=== PATIENT | male | born 1965 | race Two or more races ===

== ENCOUNTER 2018-12-07 19:14 | Emergency (ER) | payer OTHER ==
[~2018-12-07] VITALS: Ht 162.6 cm; Wt 77.1 kg
[~2018-12-07 19:14] MED LIST: ASPI-630 PO; ERGO500027 PO; METF500T16 PO
[2018-12-07 19:35] VITALS: BP 172/106
--- NOTE | 2018-12-07 19:53 | PHYS DOC ---
Past Medical History Past Medical History: Diabetes-Type II, Hypertension Past Surgical History: No Surgical History Alcohol Use: Occasionally Drug Use: None Adult General Chief Complaint Chief Complaint: LACERATION/AVULSION HPI HPI 43-year-old male presents to ER via POV with complaints of accidental laceration to right middle finger. Patient states he was using a skill saw when the accident occurred which was at 8:30 this evening. Patient denies large amount of blood loss. Patient also has abrasion on tip of rt finger. Pt denies any pain on arrival. 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 Review of Systems Review of Systems Constitutional: Denies fatigue GI: Denies nausea, vomiting Musculoskeletal: Reports rt middle finger laceration involving nail Neurologic: Denies focal weakness or sensory changes. Denies dizziness All other systems were reviewed and found to be within normal limits, except as documented in this note. Current Medications Current Medications Current Medications Medications (Trade) Dose Ordered Sig/Mikey Start Time Stop Time Status Last Admin Dose Admin Cephalexin HCl (Keflex) 500 mg 1X ONCE 12/07/18 22:30 12/07/18 22:31 DC 12/07/18 23:22 500 MG Diphtheria/ Tetanus/Acell Pertussis (Boostrix) 0.5 ml ONCE ONCE 12/07/18 20:00 12/07/18 20:01 DC 12/07/18 20:37 0.5 ML Gelatin (Gelfoam Size 100) 1 each 1X ONCE 12/07/18 23:30 12/07/18 23:31 DC Lidocaine HCl (Xylocaine 1% Pf 30ml Vial) 30 ml 1X ONCE 12/07/18 20:00 12/07/18 20:01 DC 12/07/18 22:00 30 ML Neomycin/ Polymyxin/ Bacitracin (Triple Antibiotic Ointment) 1 pkt 1X ONCE 12/07/18 23:30 12/07/18 23:31 DC 12/07/18 23:24 1 PKT Allergies Allergies Allergies Coded Allergies Type Severity Reaction Last Updated Verified No Known Drug Allergies 08/15/14 No Physical Exam Physical Exam Constitutional: Well developed, well nourished, no acute distress, non-toxic appearance. [] HENT: Normocephalic, atraumatic, oropharynx moist, nose normal. [] Eyes: Pupils equal, conjunctiva normal, no discharge. [] Neck: Normal range of motion, supple Cardiovascular: Heart rate regular Lungs & Thorax: Resp. equal/nonlabored Skin: Warm, dry Extremities: No cyanosis, no clubbing, ROM intact. 2+ bilat. radial. Rt middle finger distal tip laceration extending from tip of finger thru middle of nailbed. Proximal nail still intact without laceration extending thru entire nail. Laceration w/light bleeding. Pt is able to perform ROM of rt middle finger joints- cap refill brisk. Other fingers rt hand without injury- full ROM. Neurologic: Alert and oriented X 3, normal motor function, normal sensory function, no focal deficits noted. [] Psychologic: Affect normal, judgement normal, mood normal. [] Current Patient Data Vital Signs EKG EKG [] Radiology/Procedures Radiology/Procedures PROCEDURE: FINGER(S) RIGHT FINGER(S) RIGHT History: LACERATION TO 3RD DIGIT OF RIGHT HAND Comparison: None. Findings: 3 views of the right hand with attention to the third digit are submitted. There is an open somewhat displaced fracture involving the mid to distal aspect of the distal third phalanx. Impression: 1. There is open, displaced fracture of the distal third phalanx. Electronically signed by: Jluis Rosas MD (12/07/2018 11:26 PM) [facility] DICTATED and SIGNED BY: JLUIS ROSAS MD DATE: 12/07/18 2324 Laceration Repair by me: Anesthesia: Digital block 1% lidocaine- 1mL injected at lac site during procedure Location: Dorsal approach web space rt middle finger Tendon/Joint/Nerves: No injury- flexor and pmo project manager tendon intact against resistance prior to and after lac repair Foreign body: None detected after copious irrigation and exploration Technique: Simple Interrupted Sutures #9 5.0 nylon- 1 thru nail bed Complexity: No subcutaneous sutures/mucosal repair/edge excision Post Closure Length: 4 cm Patient's bleeding was easily controlled in the department and there is no indic ation of anemia. No evidence of compartment syndrome, neurologic injury, vascular injury, open joint, tendon laceration, or foreign body. Patient is appropriate for outpatient follow up. 48 hour wound check. Scar minimization instructions given. Course & Med Decision Making Course & Med Decision Making Discussed pt's case with Dr. Zavala who came to bedside- he recommended calling hand specialist at [facility] to discuss pt's case and plan of care. Call placed to . [phone]: Spoke with Dr. Kevin Ponce hand specialist at [facility] and discussed patient's case and plan of care. Discussed xray results. Discussed suturing for laceration closure which extended thru the nail vs nail removal- he said laceration thru nailbed could be approximated using sutures and then drsg/aluminum splint applied to finger d/t fracture reported on xray and for w ound protection. He requested pt have f/u with him at his office on and pt to be provided with [phone] number for his clinic to schedule appt [facility]. He recommended Keflex Rx. Advised Dr. Ponce pt was updated on his tetanus. Discussed phone call with pt during laceration repair. Pt tolerated lac repair well- no FB on exam. He remained PMS intact in rt upper extremity w/minimal blood loss during procedure. Laceration was well approximated. Cap refill remained brisk in rt middle finger. Wound care education provided along with s&s to return to ER for. Pt advised on use of tylenol/ibuprofen and will provide the Keflex Rx with d/c paperwork along with Dr. Ponce clinic phone number. Pt will have drsg and aluminum splint applied- educated on removal of splint to monitor lac site. At time of d/c discussion pt was in no distress and had no active bleeding at wound site. Dragon Disclaimer Dragon Disclaimer This electronic medical record was generated, in whole or in part, using a voice recognition dictation system. Departure Departure Impression: Primary Impression: Laceration of finger of right hand Additional Impression: Finger fracture, right Disposition: 01 HOME, SELF-CARE Condition: STABLE Referrals: NO PCP (PCP) Patient Instructions: Finger Fracture, Laceration Care, Adult, Sutured Wound Care Additional Instructions: Keep wound dry and clean. You will need to follow-up with Dr. Kevin Ponce (hand specialist) at [facility] [phone] on Friday. Call tomorrow and schedule your appointment- tell them Dr. Ponce was contacted while you were in the Emergency Department and you were told to come in on Friday. Tylenol and/or Ibuprofen as directed on container for pain control. You were updated on your tetanus vaccine while in the Emergency Department. Scripts Cephalexin (KEFLEX) 500 Mg Capsule 1 CAP PO BID, #14 CAP 0 Refills Prov: NEREYDA MARTINEZ APRN 12/07/18 Problem Qualifiers NEREYDA MARTINEZ APRN Dec 07, 2018 19:53
[2018-12-07] MEDS ORDERED: LIDOCAINE 1% PF 30 ML VIAL. INJ ONE (20:00)
[2018-12-07] MEDS ORDERED: DIPHTH,PERTUSS(ACELL),TET TOX 0.5 ML DISP.SYRIN. VAX IM ONE (20:00)
[2018-12-07] MEDS ORDERED: CEPH-264 PO (22:16)
[2018-12-07] MEDS ORDERED: CEPHALEXIN 250 MG CAPSULE. PO ONE (22:30)
--- NOTE | 2018-12-07 23:29 | RAD ---
FINGER(S) RIGHT History: LACERATION TO 3RD DIGIT OF RIGHT HAND Comparison: None. Findings: 3 views of the right hand with attention to the third digit are submitted. There is an open somewhat displaced fracture involving the mid to distal aspect of the distal third phalanx. Impression: 1. There is open, displaced fracture of the distal third phalanx. Electronically signed by: Enzo Leal MD (12/07/2018 11:26 PM) [facility]
[2018-12-07] MEDS ORDERED: NEOMY/BACITR/POLYMYXIN OINT PACKET. TP ONE (23:30)
[2018-12-07] MEDS ORDERED: GELATIN SPONGE SIZE 100. TP ONE (23:30)
== END 2018-12-07 23:33 | disposition home or self-care (01) ==
LOC: ER 19:14
DX: S62.632B Displaced fracture of distal phalanx of right middle finger, initial encounter for open fracture (principal); I10 Essential (primary) hypertension; E11.9 Type 2 diabetes mellitus without complications; W29.8XXA Contact with other powered hand tools and household machinery, initial encounter; Y93.89 Activity, other specified; Y92.89 Other specified places as the place of occurrence of the external cause; Y99.8 Other external cause status
CPT/HCPCS: 12002; 29130; 73140; 90471; 90715; 99283-25